=== PATIENT | male | born 1935 | race Caucasian/White ===

== ENCOUNTER → 2016-09-24 | Outpatient (CLI) | payer OTHER | LOC: MMPC 11:11 | PROVIDERS: ATTEND Physician Assistant Medical | DX: R05 Cough (principal); R09.89 Other specified symptoms and signs involving the circulatory and respiratory systems | CPT/HCPCS: 94640; 99213; G0463 ==

== ENCOUNTER → 2016-12-01 | Outpatient (CLI) | payer OTHER | LOC: MMPC 09:00 | DX: N28.9 Disorder of kidney and ureter, unspecified (principal); G47.30 Sleep apnea, unspecified; E78.5 Hyperlipidemia, unspecified; Z12.5 Encounter for screening for malignant neoplasm of prostate | CPT/HCPCS: 99213; G0463 ==

== ENCOUNTER → 2016-12-02 | Outpatient (CLI) | payer OTHER ==
[2016-12-02 11:06] LABS: BASOPHILS # (AUTO) 0.05 10*3/UL; BASOPHILS % (AUTO) 0.8 % (0-1); EOSINOPHILS % (AUTO) 1.6 % (0-8); HEMATOCRIT 45.5 % (42.0-52.0); HEMOGLOBIN 15.1 g/dL (14.0-18.0); LYMPHOCYTES # (AUTO) 1.93 10*3/uL; MEAN CORPUSCULAR HEMOGLOBIN 30.3 PG (27-31); MEAN CORPUSCULAR HGB CONC 33.2 g/dL (33-37); MEAN CORPUSCULAR VOLUME 91.4 FL (80-90); MEAN PLATELET VOLUME 10.4 FL (7.4-12.2); MONOCYTES # (AUTO) 0.71 10*3/UL (0.3-0.8); NEUTROPHILS # (AUTO) 3.64 10*3/UL; NEUTROPHILS % (AUTO) 56.4 % (50-80); PLATELET MORPHOLOGY COMMENT NORMAL MORPHOLOGY (NORM); RBC MORPHOLOGY COMMENT NORMAL MORPHOLOGY (NORM); RED BLOOD COUNT 4.98 10^6/uL (4.70-6.10); WBC MORPHOLOGY COMMENT NORMAL MORPHOLOGY (NORM)
[2016-12-02 11:16] LABS: CALCIUM 9.4 mg/dL (8.7-10.7); CHOL/HDL RATIO 4.65 RATIO (0-4.0); LDL CHOLESTEROL,CALCULATED 93.2 mg/dL; SERUM ALBUMIN 4.4 g/dL (3.5-4.8)
[2016-12-02 11:49] LABS: ERYTHROCYTE SEDIMENTATION RATE 10 MM/HR (0-15)
[2016-12-02 14:06] LABS: VITAMIN D 25-HYDROXY 44.3 NG/ML (30-100)
== END ==
LOC: MOB LAB 09:08
DX: M10.9 Gout, unspecified (principal); I10 Essential (primary) hypertension; E78.5 Hyperlipidemia, unspecified; M35.3 Polymyalgia rheumatica; G47.30 Sleep apnea, unspecified; E55.9 Vitamin D deficiency, unspecified; I12.9 Hypertensive chronic kidney disease with stage 1 through stage 4 chronic kidney disease, or unspecified chronic kidney disease; N18.9 Chronic kidney disease, unspecified; Z12.5 Encounter for screening for malignant neoplasm of prostate
CPT/HCPCS: 36415; 80053; 80061; 82306; 82550; 84443; 84550; 85025; 85652; G0103

== ENCOUNTER → 2016-12-22 | Outpatient (CLI) | payer OTHER | LOC: MMPC 11:11 | DX: M35.3 Polymyalgia rheumatica (principal); K21.9 Gastro-esophageal reflux disease without esophagitis; E78.5 Hyperlipidemia, unspecified; G47.30 Sleep apnea, unspecified; M10.9 Gout, unspecified; N28.9 Disorder of kidney and ureter, unspecified; H90.5 Unspecified sensorineural hearing loss; I10 Essential (primary) hypertension; E55.9 Vitamin D deficiency, unspecified | CPT/HCPCS: 99213; G0463 ==

== ENCOUNTER → 2017-01-03 | Outpatient (CLI) | payer OTHER | LOC: MMPC 11:11 | DX: M35.3 Polymyalgia rheumatica (principal); K21.9 Gastro-esophageal reflux disease without esophagitis; E78.5 Hyperlipidemia, unspecified; M10.9 Gout, unspecified; G47.30 Sleep apnea, unspecified; H90.5 Unspecified sensorineural hearing loss; N28.9 Disorder of kidney and ureter, unspecified; I10 Essential (primary) hypertension; E55.9 Vitamin D deficiency, unspecified | CPT/HCPCS: 99213; G0463 ==

== ENCOUNTER → 2017-03-08 | Outpatient (CLI) | payer OTHER | LOC: MMPC 11:11 | DX: M35.3 Polymyalgia rheumatica (principal); K21.9 Gastro-esophageal reflux disease without esophagitis; E78.5 Hyperlipidemia, unspecified; G47.30 Sleep apnea, unspecified; H90.5 Unspecified sensorineural hearing loss; M10.9 Gout, unspecified; I10 Essential (primary) hypertension; N28.9 Disorder of kidney and ureter, unspecified; E55.9 Vitamin D deficiency, unspecified | CPT/HCPCS: 99213; G0463 ==